=== PATIENT | female | born 1935 | race African-American/Black ===

== ENCOUNTER 2017-11-10 19:40 | Inpatient (IN) | payer MEDICARE ==
[~2017-11-10] VITALS: Ht 167.6 cm; Wt 93.1 kg
[2017-11-10] MEDS ORDERED: SODIUM CHLORIDE 0.9% 1,000 ML IV ONE (22:11)
[2017-11-10] MEDS ORDERED: DEXAMETHASONE 10 MG/ML VIAL IV ONE (23:15)
[2017-11-10] MEDS ORDERED: PHENYTOIN SODIUM 500 MG in SODIUM CHLORIDE 0.9% 50 ML IV ONE (23:15)
[2017-11-10] MEDS ORDERED: PHENYTOIN SODIUM 100MG/2ML VIAL IV ONE (23:41)
[2017-11-11] VITALS (62 sets, daily range): BP systolic 91–157; BP diastolic 43–87
[2017-11-11 00:08] LABS: BASOPHILS % 0.6 % (0.0-2.0); EOSINOPHILS % 0.1 % (0.0-5.0); HEMOGLOBIN. 13.5 g/dL (12.0-16.0); MEAN CORPUSCULAR HEMOGLOBIN 25.5 pg (28.0-32.0); MEAN CORPUSCULAR VOLUME 79.2 fL (81.0-99.0); MEAN PLATELET VOLUME 8.3 fl (7.4-10.4); NEUTROPHILS % 82.3 % (40.0-76.0); PLATELET 319 x1000/uL (130-400); RED BLOOD CELL COUNT 5.31 mill/uL (4.2-5.4); RED CELL DISTRIBUTION WIDTH 15.9 % (11.6-14.6)
[2017-11-11 00:14] LABS: CHLORIDE 104 mEq/L (98-107)
[2017-11-11 00:17] LABS: ETHANOL BLOOD < 10 mg/dL
[2017-11-11 00:21] LABS: CREATINE KINASE 906 IU/L (26-192)
[2017-11-11] MEDS ORDERED: SODIUM CHLORIDE 0.9% 1,000 ML IV SCH (00:24)
[2017-11-11 00:47] LABS: CLARITY URINE CLOUDY (CLEAR); COLOR URINE YELLOW (YELLOW); KETONES URINE 1+ (NEGATIVE); LEUKOCYTE ESTERASE URINE NEGATIVE (NEGATIVE); NITRITE URINE NEGATIVE (NEGATIVE); OCCULT BLOOD URINE 1+ (NEGATIVE); PROTEIN URINE 1+ (NEGATIVE); SPECIFIC GRAVITY URINE 1.018 (1.005-1.030)
[2017-11-11 01:13] LABS: *AMPHETAMINES SCREEN URINE NEGATIVE (NEGATIVE); *BARBITURATES SCREEN URINE NEGATIVE (NEGATIVE); *BENZODIAZEPINES SCREEN URINE NEGATIVE (NEGATIVE); *COCAINE SCREEN URINE NEGATIVE (NEGATIVE)
[2017-11-11 01:14] LABS: CANNABINOID URINE SCREEN NEGATIVE (NEGATIVE); METHADONE URINE SCREEN NEGATIVE (NEGATIVE); OPIATES URINE SCREEN NEGATIVE (NEGATIVE); PHENCYCLIDINE URINE SCREEN NEGATIVE (NEGATIVE)
[2017-11-11] MEDS ORDERED: DEXT 5%/0.45% NACL 1000ML 1,000 ML IV SCH (02:17)
[2017-11-11] MEDS ORDERED: ONDANSETRON HCL 4MG/2ML VIAL IV PRN (02:30)
[2017-11-11] MEDS ORDERED: ACETAMINOPHEN 650MG SUPP PR PRN (02:30)
[2017-11-11] MEDS ORDERED: MORPHINE SULFATE 4 MG/ML CPJ (NOT FOR IM USE) IV PRN (02:30)
[2017-11-11] MEDS ORDERED: NICARDIPINE 100 MG in SODIUM CHLORIDE 0.9% 60 ML IV PRN (05:00)
[2017-11-11] MEDS: DEXT 5%/LACTATED RINGERS 1,000 ML IV SCH ×2 (05:12→21:12)
[2017-11-11] MEDS ORDERED: LEVOFLOXACIN 500MG PREMIX 100 ML IV SCH ×2 (06:00)
[2017-11-11] MEDS: DEXAMETHASONE 4MG/ML 1ML VIAL IV SCH ×3 (06:34→17:14)
[2017-11-11] MEDS: PHENYTOIN SODIUM 100MG/2ML VIAL IV SCH ×3 (06:35→22:45)
[2017-11-11] MEDS: AMLODIPINE 10MG TABLET PO SCH (09:00)
[2017-11-11] MEDS ORDERED: GADOBENATE DIMEGLUMINE 529 MG/ML 10ML IV ONE (09:15)
[2017-11-11] MEDS ORDERED: IPRATROPIUM/ALBUTEROL 0.5-3(2.5)MG/3ML NEB HHN PRN (11:30)
[2017-11-11 13:08] LABS: BASOPHILS % 0.1 % (0.0-2.0); HEMATOCRIT. 38.8 % (36.0-48.0); HEMOGLOBIN. 12.6 g/dL (12.0-16.0); LYMPHOCYTES % 7.2 % (20.0-50.0); MEAN CORPUSCULAR HEMOGLOBIN 25.6 pg (28.0-32.0); MEAN CORPUSCULAR VOLUME 78.4 fL (81.0-99.0); MEAN PLATELET VOLUME 7.9 fl (7.4-10.4); MONOCYTES % 4.3 % (2.0-8.0); NEUTROPHILS % 88.4 % (40.0-76.0); PLATELET 276 x1000/uL (130-400); RED BLOOD CELL COUNT 4.95 mill/uL (4.2-5.4); RED CELL DISTRIBUTION WIDTH 16.3 % (11.6-14.6)
[2017-11-11] MEDS: PANTOPRAZOLE SODIUM 40 MG/VIAL IV SCH (14:25)
[2017-11-11] MEDS ORDERED: DEXTROSE 50% WATER 50ML SYRINGE IV PRN (15:30)
[2017-11-11] MEDS: BLOOD SUGAR DIAGNOSTIC STRIP TEST SCH ×2 (17:00→21:13)
[2017-11-11] MEDS: INSULIN LISPRO 100 UNITS/ML SUBCUT SCH ×2 (17:13→21:21)
[2017-11-12] VITALS (48 sets, daily range): BP systolic 88–165; BP diastolic 43–90
[2017-11-12] MEDS: DEXAMETHASONE 4MG/ML 1ML VIAL IV SCH ×5 (00:51→23:21)
[2017-11-12] MEDS: DEXT 5%/LACTATED RINGERS 1,000 ML IV SCH ×2 (02:00→17:57)
[2017-11-12 05:31] LABS: CHLORIDE 111 mEq/L (98-107)
[2017-11-12 05:54] LABS: HEMATOCRIT. 34.6 % (36.0-48.0); HEMOGLOBIN. 11.4 g/dL (12.0-16.0); MEAN CORPUSCULAR HEMOGLOBIN 25.8 pg (28.0-32.0); MEAN CORPUSCULAR VOLUME 78.4 fL (81.0-99.0); MEAN PLATELET VOLUME 8.1 fl (7.4-10.4); PLATELET 261 x1000/uL (130-400); RED BLOOD CELL COUNT 4.41 mill/uL (4.2-5.4); RED CELL DISTRIBUTION WIDTH 15.9 % (11.6-14.6)
[2017-11-12] MEDS: BLOOD SUGAR DIAGNOSTIC STRIP TEST SCH ×4 (06:30→21:17)
[2017-11-12] MEDS: INSULIN LISPRO 100 UNITS/ML SUBCUT SCH ×4 (06:34→21:15)
[2017-11-12] MEDS: PHENYTOIN SODIUM 100MG/2ML VIAL IV SCH ×3 (06:34→21:18)
[2017-11-12] MEDS: LEVOFLOXACIN 250MG PREMIX 50 ML IV SCH (06:34)
[2017-11-12 09:33] LABS: PLATELET ESTIMATE NORMAL
[2017-11-12] MEDS: PANTOPRAZOLE SODIUM 40 MG/VIAL IV SCH (10:09)
[2017-11-12] MEDS: AMLODIPINE 10MG TABLET PO SCH (10:10)
[2017-11-12] MEDS ORDERED: INSULIN LISPRO 100 UNITS/ML SUBCUT NR (21:00)
[2017-11-13] VITALS: BP 124/58
[2017-11-13 04:00] VITALS: BP 129/63
[2017-11-13] MEDS: LEVOFLOXACIN 250MG PREMIX 50 ML IV SCH (05:41)
[2017-11-13] MEDS: DEXAMETHASONE 4MG/ML 1ML VIAL IV SCH ×3 (05:42→17:38)
[2017-11-13] MEDS: PHENYTOIN SODIUM 100MG/2ML VIAL IV SCH ×3 (05:42→22:30)
[2017-11-13] MEDS: DEXT 5%/LACTATED RINGERS 1,000 ML IV SCH ×2 (06:03→22:36)
[2017-11-13] MEDS: BLOOD SUGAR DIAGNOSTIC STRIP TEST SCH ×4 (06:25→21:45)
[2017-11-13] MEDS: INSULIN LISPRO 100 UNITS/ML SUBCUT SCH ×4 (06:52→22:29)
[2017-11-13 08:00] VITALS: BP 139/62
[2017-11-13] MEDS: AMLODIPINE 10MG TABLET PO SCH (08:26)
[2017-11-13] MEDS: FAMOTIDINE 20MG/2ML VIAL IV SCH ×2 (08:27→21:42)
[2017-11-13 12:00] VITALS: BP 139/61
[2017-11-13 16:00] VITALS: BP 128/59
[2017-11-13] MEDS ORDERED: INSULIN LISPRO 100 UNITS/ML SUBCUT SCH (22:00)
[2017-11-14] VITALS: BP 142/62
[2017-11-14] MEDS: DEXAMETHASONE 4MG/ML 1ML VIAL IV SCH ×4 (01:46→17:07)
[2017-11-14 04:00] VITALS: BP 132/58
[2017-11-14] MEDS: BLOOD SUGAR DIAGNOSTIC STRIP TEST SCH ×4 (06:29→21:19)
[2017-11-14] MEDS: PHENYTOIN SODIUM 100MG/2ML VIAL IV SCH ×3 (06:30→21:18)
[2017-11-14] MEDS: LEVOFLOXACIN 250MG PREMIX 50 ML IV SCH (06:36)
[2017-11-14] MEDS: INSULIN LISPRO 100 UNITS/ML SUBCUT SCH ×4 (07:03→22:18)
[2017-11-14 08:00] VITALS: BP 133/61
[2017-11-14] MEDS: FAMOTIDINE 20MG/2ML VIAL IV SCH ×2 (08:50→21:18)
[2017-11-14] MEDS: AMLODIPINE 10MG TABLET PO SCH (08:50)
[2017-11-14 12:00] VITALS: BP 150/60
[2017-11-14] MEDS: TIMOLOL MALEATE 0.5% OPHTH DROPS 5ML EACHEYE SCH ×2 (12:41→21:18)
[2017-11-14] MEDS ORDERED: INSULIN LISPRO 100 UNITS/ML SUBCUT NR (13:00)
[2017-11-14] MEDS: NYSTATIN POWDER 15GM TOP SCH ×2 (14:51→17:12)
[2017-11-14 16:00] VITALS: BP_SYST 132; BP_SYST 134; BP_DIAS 58
[2017-11-14] MEDS: DEXT 5%/LACTATED RINGERS 1,000 ML IV SCH (17:12)
[2017-11-14 20:00] VITALS: BP 133/63
[2017-11-15] VITALS: BP 131/60
[2017-11-15] MEDS: DEXAMETHASONE 4MG/ML 1ML VIAL IV SCH ×4 (00:56→17:29)
[2017-11-15 04:00] VITALS: BP 143/61
[2017-11-15] MEDS: PHENYTOIN SODIUM 100MG/2ML VIAL IV SCH ×3 (05:37→21:23)
[2017-11-15] MEDS: LEVOFLOXACIN 250MG PREMIX 50 ML IV SCH (05:38)
[2017-11-15] MEDS: BLOOD SUGAR DIAGNOSTIC STRIP TEST SCH ×4 (07:20→21:24)
[2017-11-15] MEDS: INSULIN LISPRO 100 UNITS/ML SUBCUT SCH ×5 (07:50→22:44)
[2017-11-15 08:00] VITALS: BP 133/52
[2017-11-15] MEDS: FAMOTIDINE 20MG/2ML VIAL IV SCH ×2 (08:47→21:23)
[2017-11-15] MEDS: TIMOLOL MALEATE 0.5% OPHTH DROPS 5ML EACHEYE SCH ×2 (08:48→21:23)
[2017-11-15] MEDS: AMLODIPINE 10MG TABLET PO SCH (08:48)
[2017-11-15] MEDS: NYSTATIN POWDER 15GM TOP SCH ×3 (09:01→17:29)
[2017-11-15] MEDS: DEXT 5%/LACTATED RINGERS 1,000 ML IV SCH (09:02)
[2017-11-15] MEDS ORDERED: INSULIN LISPRO 100 UNITS/ML SUBCUT STA (09:19)
[2017-11-15 12:00] VITALS: BP 117/52
[2017-11-15] MEDS ORDERED: LANTUSUD SUBCUT (13:37)
[2017-11-15] MEDS ORDERED: TIMO5DRO27 EACHEYE (13:37)
[2017-11-15] MEDS ORDERED: AMLO1TAB36 MT (13:37)
[2017-11-15 15:41] LABS: INR 1.1; PROTHROMBIN TIME 11.3 sec (9.1-11.1)
[2017-11-15 16:00] VITALS: BP 124/54
[2017-11-15 20:00] VITALS: BP 148/61
[2017-11-16] VITALS (17 sets, daily range): BP systolic 110–153; BP diastolic 53–74
[2017-11-16] MEDS: DEXAMETHASONE 4MG/ML 1ML VIAL IV SCH ×4 (00:08→17:57)
[2017-11-16] MEDS: PHENYTOIN SODIUM 100MG/2ML VIAL IV SCH ×3 (06:39→20:46)
[2017-11-16] MEDS: LEVOFLOXACIN 250MG PREMIX 50 ML IV SCH (06:39)
[2017-11-16] MEDS: INSULIN LISPRO 100 UNITS/ML SUBCUT SCH ×7 (07:20→20:45)
[2017-11-16] MEDS: BLOOD SUGAR DIAGNOSTIC STRIP TEST SCH ×4 (07:40→20:46)
[2017-11-16] MEDS ORDERED: FENTANYL CITRATE/PF 50MCG/ML 2ML VIAL ONE (08:32)
[2017-11-16] MEDS: NYSTATIN POWDER 15GM TOP SCH ×3 (08:51→17:58)
[2017-11-16] MEDS: TIMOLOL MALEATE 0.5% OPHTH DROPS 5ML EACHEYE SCH ×3 (08:51→20:46)
[2017-11-16] MEDS: FAMOTIDINE 20MG/2ML VIAL IV SCH ×2 (08:51→20:46)
[2017-11-16] MEDS: AMLODIPINE 10MG TABLET PO SCH (08:51)
[2017-11-16] MEDS ORDERED: SODIUM BICARBONATE 4% (2.4MEQ) 5ML VIAL IV ONE (09:05)
[2017-11-16] MEDS ORDERED: LIDOCAINE HCL 1% 20ML VIAL (Pyxis) INJ ONE (09:06)
[2017-11-16] MEDS ORDERED: FENTANYL CITRATE/PF 50MCG/ML 2ML VIAL IV ONE (09:45)
[2017-11-16] MEDS: INSULIN GLARGINE UD 100 UNITS/ML SYR SUBCUT SCH (10:00)
[2017-11-17] VITALS: BP 137/67
[2017-11-17] MEDS: DEXAMETHASONE 4MG/ML 1ML VIAL IV SCH ×5 (00:05→18:44)
[2017-11-17 04:00] VITALS: BP 115/56
[2017-11-17] MEDS: PHENYTOIN SODIUM 100MG/2ML VIAL IV SCH ×3 (05:22→21:57)
[2017-11-17] MEDS: LEVOFLOXACIN 250MG TABLET PO SCH (05:22)
[2017-11-17] MEDS: INSULIN LISPRO 100 UNITS/ML SUBCUT SCH ×7 (06:50→22:03)
[2017-11-17] MEDS: BLOOD SUGAR DIAGNOSTIC STRIP TEST SCH ×4 (06:52→21:00)
[2017-11-17 08:00] VITALS: BP 100/42
[2017-11-17] MEDS: AMLODIPINE 10MG TABLET PO SCH (08:22)
[2017-11-17] MEDS: FAMOTIDINE 20MG/2ML VIAL IV SCH ×2 (08:23→21:57)
[2017-11-17] MEDS: NYSTATIN POWDER 15GM TOP SCH ×3 (08:23→16:21)
[2017-11-17] MEDS: TIMOLOL MALEATE 0.5% OPHTH DROPS 5ML EACHEYE SCH ×2 (08:23→21:57)
[2017-11-17] MEDS: INSULIN GLARGINE UD 100 UNITS/ML SYR SUBCUT SCH (10:55)
[2017-11-17 12:00] VITALS: BP 100/44
[2017-11-17 16:00] VITALS: BP_SYST 116; BP_SYST 129; BP_DIAS 55; BP_DIAS 91
[2017-11-17 20:00] VITALS: BP 126/48
[2017-11-18] VITALS (7 sets, daily range): BP systolic 110–136; BP diastolic 44–80
[2017-11-18] MEDS: DEXAMETHASONE 4MG/ML 1ML VIAL IV SCH ×4 (00:53→18:00)
[2017-11-18] MEDS: BLOOD SUGAR DIAGNOSTIC STRIP TEST SCH ×3 (07:20→17:20)
[2017-11-18] MEDS: PHENYTOIN SODIUM 100MG/2ML VIAL IV SCH ×2 (07:30→13:11)
[2017-11-18] MEDS: LEVOFLOXACIN 250MG TABLET PO SCH (07:30)
[2017-11-18] MEDS: INSULIN LISPRO 100 UNITS/ML SUBCUT SCH ×6 (08:45→17:57)
[2017-11-18] MEDS: FAMOTIDINE 20MG/2ML VIAL IV SCH (08:48)
[2017-11-18] MEDS: NYSTATIN POWDER 15GM TOP SCH ×3 (08:51→17:00)
[2017-11-18] MEDS: TIMOLOL MALEATE 0.5% OPHTH DROPS 5ML EACHEYE SCH ×2 (08:51→21:39)
[2017-11-18] MEDS: AMLODIPINE 10MG TABLET PO SCH (08:52)
[2017-11-18] MEDS: INSULIN GLARGINE UD 100 UNITS/ML SYR SUBCUT SCH (11:08)
== END 2017-11-18 22:35 | DRG 54 ==
LOC: ER 19:40 → EDBEDREQSVC 23:16 → EDBEDREQ 23:16 → EDBEDREQTM 23:16 → MICUSO 11-11 00:24 → EDBEDREQ 11-11 00:30 → ENRESERV 11-11 01:53 → 6EST 11-12 15:35
PROVIDERS: ADMIT Hospitalist; ATTEND Hospitalist
DX: C79.31 Secondary malignant neoplasm of brain (principal); G93.40 Encephalopathy, unspecified; G93.6 Cerebral edema; M62.82 Rhabdomyolysis; C78.1 Secondary malignant neoplasm of mediastinum; I62.9 Nontraumatic intracranial hemorrhage, unspecified; I10 Essential (primary) hypertension; E11.9 Type 2 diabetes mellitus without complications; E87.5 Hyperkalemia; W18.30XA Fall on same level, unspecified, initial encounter; M19.90 Unspecified osteoarthritis, unspecified site; M25.561 Pain in right knee; M25.562 Pain in left knee; R59.0 Localized enlarged lymph nodes; G80.9 Cerebral palsy, unspecified; Y93.89 Activity, other specified; Y92.091 Bathroom in other non-institutional residence as the place of occurrence of the external cause; Y99.8 Other external cause status
CPT/HCPCS: 32405; 36415; 70450; 70553; 71045; 71250; 74176; 77012; 80048; 80053; 80185; 80305; 81003; 82550; 82962; 83605; 83690; 83880; 84134; 84484; 85025; 85610; 87086; 92610; 93005; 96361; 96365; 96375; 97116; 97162; 97166; 97530; 97535; 99291; A9577; C1893; C9113; G0482; J1100; J1165; J1815; J1956; J3010; J3490; J7030; J7050; L0172; A4315